=== PATIENT | female | born 1985 | race Caucasian/White ===

== ENCOUNTER 2017-02-20 17:13 | Emergency (ER) | payer OTHER ==
[2017-02-20] MEDS ORDERED: Azithromycin TAB* 250 MG PO ONE (17:25)
[2017-02-20 17:56] VITALS: BP 114/70
--- NOTE | 2017-02-24 04:20 | ED ---
Sae Payne Nikita, scribed for John Strong MD on 02/20/17 at 1732 . Complex/Multi-Sys Presentation - HPI Summary HPI Summary: This patient is a 31 year old F presenting to ED with recommendations from health department to give pt abx. Pt was exposed to pertussis 3 weeks ago and has been asymptomatic. The patient rates the pain 0/10 in severity. Symptoms aggravated by nothing. Symptoms alleviated by nothing. Patient reports L-sided sinus pressure and L ear pressure since 1-2 weeks ago. Patient denies cough. Pt has cystic fibrosis and multiple sclerosis. Pt was recently on amoxicillin. Pt s partner has bronchitis symptoms. - History Of Current Complaint Time Seen by Provider: 02/20/17 17:21 Hx Obtained From: Patient Onset/Duration: Sudden Onset, Lasting Weeks, Still Present Timing: Constant Severity Currently: None Aggravating Factor(s): nothing Alleviating Factor(s): nothing Associated Signs And Symptoms: Positive: Other - Patient reports L-sided sinus pressure and L ear pressure since 1-2 weeks ago. Patient denies cough. - Allergies/Home Medications Allergies/Adverse Reactions: Allergies Allergy/AdvReac Type Severity Reaction Status Date / Time No Known Allergies Allergy Verified 06/04/16 13:49 PMH/Surg Hx/FS Hx/Imm Hx Endocrine/Hematology History: Denies: Hx Diabetes, Hx Thyroid Disease Cardiovascular History: Denies: Hx Hypertension, Hx Pacemaker/ICD Respiratory History: Denies: Hx Asthma, Hx Chronic Obstructive Pulmonary Disease (COPD) GI History: Denies: Hx Ulcer History: Denies: Hx Dialysis, Hx Renal Disease Sensory History: Denies: Hx Hearing Aid Psychiatric History: Denies: Hx Panic Disorder - Surgical History Surgery Procedure, Year, and Place: Gallbladder, TONSILS. lumpectomy LT BREAST - Immunization History Date of Tetanus Vaccine: PT STATES UNSURE Date of Influenza Vaccine: NONE Infectious Disease History: Denies: Hx Hepatitis, Hx Human Immunodeficiency Virus (HIV) - Family History Known Family History: Positive: Diabetes Negative: Cardiac Disease, Hypertension - Social History Alcohol Use: None Substance Use Type: Reports: None Smoking Status (MU): Never Smoked Tobacco Review of Systems Positive: Other - L ear pressure, L-sided sinus pressure Negative: Cough All Other Systems Reviewed And Are Negative: Yes Physical Exam Triage Information Reviewed: Yes Vital Signs On Initial Exam: Initial Vitals Temp Pulse Resp BP Pulse Ox 98.6 F 70 16 114/70 99 02/20/17 17:53 02/20/17 17:53 02/20/17 17:53 02/20/17 17:53 02/20/17 17:53 Vital Signs Reviewed: Yes Appearance: Positive: Well-Appearing, No Pain Distress Skin: Positive: Warm, Skin Color Reflects Adequate Perfusion, Dry Head/Face: Positive: Normal Head/Face Inspection Eyes: Positive: EOMI, LISBETH ENT: Positive: Other - L serous otitis media Neck: Positive: Supple, Nontender Respiratory/Lung Sounds: Positive: Clear to Auscultation, Breath Sounds Present Cardiovascular: Positive: RRR Abdomen Description: Positive: Nontender, Soft Bowel Sounds: Positive: Present Musculoskeletal: Positive: Normal, Strength/ROM Intact Neurological: Positive: Normal, Sensory/Motor Intact, Alert, Oriented to Person Place, Time Psychiatric: Positive: Affect/Mood Appropriate Diagnostics - Vital Signs Vital Signs Temp Pulse Resp BP Pulse Ox 02/20/17 17:53 98.6 F 70 16 114/70 99 - Laboratory Lab Statement: Any lab studies that have been ordered have been reviewed, and results considered in the medical decision making process. Complex Multi-Symp Course/Dx Assessment/Plan: This patient is a 31 year old F presenting to ED with recommendations from health department to give pt abx. Pt was exposed to pertussis 3 weeks ago and has been asymptomatic. The patient rates the pain 0/ 10 in severity. Symptoms aggravated by nothing. Symptoms alleviated by nothing. Patient reports L-sided sinus pressure and L ear pressure since 1-2 weeks ago. Patient denies cough. Pt has cystic fibrosis and multiple sclerosis. Medications reviewed. Pt will be discharged. Pt is agreeable with this plan. - Diagnoses Provider Diagnoses: Pertussis exposure Discharge - Discharge Plan Condition: Stable Disposition: HOME Prescriptions: Azithromycin TAB* [Zithromax TAB (Z-RADHIKA) 250 mg #6 tabs] 250 mg PO DAILY #4 tab Patient Education Materials: Otitis Externa (ED) Referrals: Fransisca Recio MD [Primary Care Provider] - Additional Instructions: FOLLOW UP WITH YOUR DOCTOR FOR YOUR EAR PAIN AND EXPOSURE TO PERTUSSIS. RETURN TO THE EMERGENCY DEPARTMENT FOR ANY WORSENING OF YOUR CONDITION OR QUESTIONS OR CONCERNS. The documentation as recorded by the Sae garay Nikita accurately reflects the service I personally performed and the decisions made by , John Strong MD.
== END 2017-02-20 17:56 | disposition home or self-care (01) ==
LOC: ED 17:13
DX: Z20.89 Contact with and (suspected) exposure to other communicable diseases (principal); E84.9 Cystic fibrosis, unspecified; G35 Multiple sclerosis
CPT/HCPCS: 99282; A9270-GY

== ENCOUNTER 2017-06-16 22:28 | Emergency (ER) | payer SELFPAY ==
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
[2017-06-17 02:16] VITALS: BP 132/72
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
== END 2017-06-17 02:16 | disposition home or self-care (01) ==
LOC: ED 22:28
DX: S09.90XA Unspecified injury of head, initial encounter (principal); V47.0XXA Car driver injured in collision with fixed or stationary object in nontraffic accident, initial encounter; Y93.89 Activity, other specified; Y92.410 Unspecified street and highway as the place of occurrence of the external cause; R51 Headache; Z90.49 Acquired absence of other specified parts of digestive tract
CPT/HCPCS: 70450; 99282

== ENCOUNTER 2021-04-24 06:21 | Inpatient (IN) ==
[~2021-04-24 06:21] MED LIST: Buffered Lidocaine 1% SYRIN 1 ml INTRADERM ONE; Lactated Ringers 1000 ml BAG 1,000 ML IV SCH; Sodium Citrate/Citric Acid LIQ 15 ML UDC PO ONE
[2021-04-24] MEDS ORDERED: ceFOXitin 2 GM IVPREMIX 2 GM/50 ML BAG ONE (07:04)
[2021-04-24 07:19] LABS: ABS Basophils 0.1 10^3/ul (0-0.2); ABS Eosinophils 0.1 10^3/ul (0-0.6); ABS Lymphocytes 1.9 10^3/ul (1.0-4.8); ABS Monocytes 1.1 10^3/ul (0-0.8); Eosinophil % 1.2 %; Hematocrit 30 % (35-47); Hemoglobin 10.3 g/dL (12.0-16.0); Lymphocyte % 18.7 %; Mean Corpuscular HGB Conc 34 g/dL (31-36); Mean Corpuscular Hemoglobin 31 pg (27-31); Mean Corpuscular Volume 89 fL (80-97); Mean Platelet Volume 9.3 fL (7.4-10.4); Platelet Count 292 10^3/uL (150-450); Red Blood Count 3.37 10^6 /uL (3.70-4.87); Red Cell Distribution Width 15 % (10-15); White Blood Count 10.2 10^3/uL (3.5-10.8)
[2021-04-24 07:37] LABS: Urine Appearance Clear; Urine Bilirubin Negative (Negative); Urine Blood Negative (Negative); Urine Color Straw; Urine Glucose Negative (Negative); Urine Ketones Negative (Negative); Urine Nitrite Negative (Negative); Urine Protein Negative (Negative); Urine Specific Gravity 1.008 (1.002-1.030); Urine Urobilinogen Negative (Negative)
[2021-04-24 07:41] LABS: Urine Benzodiazepine Screen None Detected (None Detect); Urine Opiates Screen None Detected (None Detect)
[2021-04-24] MEDS ORDERED: Phenylephrine IV 10 MG/ML 1 ml VIAL ONE (08:19)
[2021-04-24] MEDS ORDERED: Morphine PF AMP (0.5MG/ML) 5 MG/10 ML AMP ONE (08:22)
[2021-04-24] MEDS ORDERED: fentaNYL 100 mcg/2 ml 50 MCG/ML VIAL ONE (08:22)
[2021-04-24] MEDS ORDERED: Ondansetron 4 mg VIAL 2 MG/ML 2 ml VIAL ONE (08:27)
[2021-04-24] MEDS ORDERED: Oxytocin 10 UNITS/ML 1 ML VIAL ONE ×2 (09:00→09:24)
[2021-04-24] MEDS ORDERED: Acetaminophen IV 1 GM/100 ML BAG IV ONE (09:28)
[2021-04-24] MEDS ORDERED: Metoclopramide 5 MG/ML VIAL (10 mg) IV PRN (09:28)
[2021-04-24] MEDS ORDERED: fentaNYL 100 mcg/2 ml 50 MCG/ML VIAL IV PRN (09:28)
[2021-04-24] MEDS ORDERED: Naloxone 0.4 mg VIAL 0.4 mg/ml 1 ml VIAL IV PRN ×2 (09:28→09:31)
[2021-04-24] MEDS ORDERED: Ondansetron 4 mg VIAL 2 MG/ML 2 ml VIAL IV PRN (09:31)
[2021-04-24] MEDS ORDERED: oxyCODONE/Acetamin 5/325 mg TAB PO PRN (09:31)
[2021-04-24] MEDS ORDERED: Naloxone 4 mg VIAL (10 ml) 2 MG in NS 0.9% 250 ml 250 ML IV PRN (09:31)
[2021-04-24] MEDS ORDERED: Dibucaine 1% OINT 28.35 GM TUBE PR PRN (09:52)
[2021-04-24] MEDS ORDERED: Glycerin ADULT 2.4 gm SUPP PR PRN (09:52)
[2021-04-24] MEDS ORDERED: Witch Hazel PAD JAR TOPICAL PRN (09:52)
[2021-04-24] MEDS ORDERED: Lactated Ringers 1000 ml BAG 1,000 ML IV SCH (10:00)
[2021-04-24] MEDS ORDERED: Oxytocin in LR 20 UNITS/1,000 ML BAG IVPB SCH (10:00)
[2021-04-24] MEDS: KALYDECO PO SCH (11:56)
[2021-04-24] MEDS: CREON 24000 UNIT PO SCH ×3 (12:19→19:30)
[2021-04-25] MEDS: KALYDECO PO SCH ×2 (00:16→08:22)
[2021-04-25 07:06] LABS: ABS Eosinophils 0.1 10^3/ul (0-0.6); ABS Lymphocytes 1.1 10^3/ul (1.0-4.8); ABS Monocytes 0.9 10^3/ul (0-0.8); ABS Neutrophils 8.8 10^3/ul (1.5-7.7); Eosinophil % 0.7 %; Hematocrit 26 % (35-47); Lymphocyte % 10.1 %; Mean Corpuscular HGB Conc 34 g/dL (31-36); Mean Corpuscular Hemoglobin 31 pg (27-31); Mean Corpuscular Volume 90 fL (80-97); Mean Platelet Volume 8.8 fL (7.4-10.4); Platelet Count 247 10^3/uL (150-450); Red Blood Count 2.91 10^6 /uL (3.70-4.87); Red Cell Distribution Width 15 % (10-15); White Blood Count 10.9 10^3/uL (3.5-10.8)
[2021-04-25] MEDS: CREON 24000 UNIT PO SCH ×3 (08:21→17:53)
[2021-04-25] MEDS ORDERED: Varicella Virus Vaccine Live 0.5 ML VIAL SUBCUT ONE (09:00)
[2021-04-26] MEDS: KALYDECO PO SCH ×3 (01:06→23:38)
[2021-04-26] MEDS: CREON 24000 UNIT PO SCH ×4 (08:28→23:37)
[2021-04-27] MEDS: KALYDECO PO SCH (09:14)
[2021-04-27] MEDS: CREON 24000 UNIT PO SCH (09:14)
[2021-04-27 09:18] VITALS: BP 111/69
== END 2021-04-27 13:40 | disposition home or self-care (01) | DRG 540 ==
LOC: MCHOB 06:21
PROVIDERS: ADMIT Obstetrics & Gynecology; ATTEND Obstetrics & Gynecology